=== PATIENT | male | born 1960 | race Caucasian/White ===

== ENCOUNTER 2019-01-16 03:59 | Emergency (ER) | payer MEDICAID ==
[~2019-01-16] VITALS: Ht 172.7 cm; Wt 68.2 kg
[~2019-01-16 03:59] MED LIST: GABA-338 PO; OMEP40CA13 PO; VENL37.586 PO
[2019-01-16] MEDS ORDERED: ondansetron/PF 4mg/2ml inj IV ONE (04:45)
[2019-01-16] MEDS ORDERED: morphine 4 MG/ML inj SYRINge IV ONE (04:45)
[2019-01-16] MEDS ORDERED: pantoprazole 40 MG vial IV ONE (04:45)
[2019-01-16] MEDS ORDERED: normal saline 1000ML IV soln IVB ONE (04:45)
[2019-01-16 05:05] LABS: BASOPHILS # (AUTO) 0.1 X10'3 (0-0.2); BASOPHILS % (AUTO) 0.6 % (0-1); EOSINOPHILS # (AUTO) 0.2 X10'3 (0-0.9); EOSINOPHILS % (AUTO) 1.7 % (0-6); HEMATOCRIT 43.2 % (42.0-52.0); HEMOGLOBIN 14.5 g/dl (14.0-17.9); LYMPHOCYTES # (AUTO) 1.8 X10'3 (1.1-4.8); LYMPHOCYTES % (AUTO) 18.3 % (21-51); MEAN CORPUSCULAR HEMOGLOBIN 32.2 PG (27.0-31.0); MEAN CORPUSCULAR HGB CONC 33.5 g/dL (33.0-36.5); MEAN CORPUSCULAR VOLUME 96.1 FL (78-98); MEAN PLATELET VOLUME 8.9 FL (7.4-10.4); MONOCYTES # (AUTO) 0.5 X10'3 (0-0.9); MONOCYTES % (AUTO) 4.6 % (2-12); NEUTROPHILS # (AUTO) 7.3 X10'3 (1.8-7.7); NEUTROPHILS % (AUTO) 74.8 % (42-75); PLATELET COUNT 243 X10'3 (140-440); WHITE BLOOD COUNT 9.7 X10'3 (4.5-11.0)
[2019-01-16 05:13] LABS: ALANINE AMINOTRANSFERASE 25 U/L (12-78); ALBUMIN 3.2 G/DL (3.4-5.0); ALKALINE PHOSPHATASE 78 IU/L (46-116); ANION GAP 8 (8-16); ASPARTATE AMINO TRANSFERASE 15 U/L (10-37); BILIRUBIN,TOTAL 0.3 MG/DL (0.1-1.0); BLOOD UREA NITROGEN 12 MG/DL (7-18); BUN/CREATININE RATIO 12.1 (5.4-32.0); CALCIUM 8.6 MG/DL (8.5-10.1); CHLORIDE 106 MMOL/L (99-107); CREATININE 0.99 MG/DL (0.60-1.10); GLUCOSE 153 MG/DL (70-104); LIPASE 87 U/L (73-393); POTASSIUM 3.4 MMOL/L (3.5-5.1); SODIUM 142 MMOL/L (135-145); TOTAL CARBON DIOXIDE 27.8 MMOL/L (24-32); TOTAL PROTEIN 6.4 G/DL (6.4-8.2); eGFR 77 ML/MIN
[2019-01-16] MEDS ORDERED: ONDA8TAB13 PO (05:36)
[2019-01-16] MEDS ORDERED: LIDOcaine Viscous 15ml cup PO ONE (05:55)
[2019-01-16] MEDS ORDERED: mag hydrox/Alum hydrox/simeth 30ml oral suspension PO ONE (05:55)
[2019-01-16 06:23] VITALS: BP 154/81
== END 2019-01-16 06:57 | disposition home or self-care (01) ==
LOC: ER 03:59
DX: S29.012A Strain of muscle and tendon of back wall of thorax, initial encounter (principal); G89.29 Other chronic pain; R10.13 Epigastric pain; R11.10 Vomiting, unspecified; J44.9 Chronic obstructive pulmonary disease, unspecified; K21.9 Gastro-esophageal reflux disease without esophagitis; F17.200 Nicotine dependence, unspecified, uncomplicated; F12.90 Cannabis use, unspecified, uncomplicated; Z88.0 Allergy status to penicillin; Z88.5 Allergy status to narcotic agent; Z88.8 Allergy status to other drugs, medicaments and biological substances; Z79.899 Other long term (current) drug therapy; X50.0XXA Overexertion from strenuous movement or load, initial encounter; Y93.89 Activity, other specified; Y92.89 Other specified places as the place of occurrence of the external cause; Y99.8 Other external cause status
CPT/HCPCS: 36415; 80053; 83690; 85025; 93005; 96361; 96374; 96375; 99284; C9113; J2270; J2405; J7030

== ENCOUNTER 2019-01-29 18:48 | Inpatient (IN) | payer MEDICAID ==
[~2019-01-29] VITALS: Ht 172.7 cm; Wt 63.0 kg
[~2019-01-29 18:48] MED LIST changes: +ONDA8TAB13 PO
[2019-01-29 19:37] LABS: BASOPHILS # (AUTO) 0.1 X10'3 (0-0.2); BASOPHILS % (AUTO) 0.9 % (0-1); EOSINOPHILS # (AUTO) 0.4 X10'3 (0-0.9); EOSINOPHILS % (AUTO) 2.9 % (0-6); HEMATOCRIT 46.5 % (42.0-52.0); HEMOGLOBIN 15.7 g/dl (14.0-17.9); LYMPHOCYTES # (AUTO) 2.6 X10'3 (1.1-4.8); LYMPHOCYTES % (AUTO) 19.4 % (21-51); MEAN CORPUSCULAR HGB CONC 33.7 g/dL (33.0-36.5); MEAN CORPUSCULAR VOLUME 94.9 FL (78-98); MEAN PLATELET VOLUME 7.9 FL (7.4-10.4); MONOCYTES # (AUTO) 0.7 X10'3 (0-0.9); MONOCYTES % (AUTO) 5.6 % (2-12); NEUTROPHILS # (AUTO) 9.4 X10'3 (1.8-7.7); NEUTROPHILS % (AUTO) 71.2 % (42-75); PLATELET COUNT 262 X10'3 (140-440); RED CELL DISTRIBUTION WIDTH 14.3 % (11.5-14.5); WHITE BLOOD COUNT 13.2 X10'3 (4.5-11.0)
[2019-01-29 19:55] LABS: ALANINE AMINOTRANSFERASE 28 U/L (12-78); ALBUMIN 3.7 G/DL (3.4-5.0); ALBUMIN/GLOBULIN RATIO 1.1 (1.1-1.5); ALKALINE PHOSPHATASE 88 IU/L (46-116); ANION GAP 11 (8-16); ASPARTATE AMINO TRANSFERASE 20 U/L (10-37); BILIRUBIN,TOTAL 0.4 MG/DL (0.1-1.0); BLOOD UREA NITROGEN 12 MG/DL (7-18); BUN/CREATININE RATIO 11.3 (5.4-32.0); CALCIUM 9.1 MG/DL (8.5-10.1); CHLORIDE 105 MMOL/L (99-107); CREATININE 1.06 MG/DL (0.60-1.10); GLUCOSE 117 MG/DL (70-104); SODIUM 143 MMOL/L (135-145); TOTAL CARBON DIOXIDE 26.9 MMOL/L (24-32); TOTAL PROTEIN 7.2 G/DL (6.4-8.2); eGFR 71 ML/MIN
[2019-01-29 19:57] LABS: PARTIAL THROMBOPLASTIN TIME 28 SECONDS (22-32)
[2019-01-29] MEDS ORDERED: normal saline 1000ML IV soln IVB ONE ×2 (20:35→22:05)
[2019-01-29] MEDS ORDERED: ondansetron/PF 4mg/2ml inj IV ONE (20:35)
[2019-01-29 20:42] LABS: LIPASE 159 U/L (73-393)
--- NOTE | 2019-01-29 21:00 | NUR ---
[facility] PT'S SON
[2019-01-29] MEDS: morphine 4 MG/ML inj SYRINge IV PRN ×2 (21:03→22:35)
--- NOTE | 2019-01-29 21:08 | NUR ---
PT STATES PAIN IS MOSTLY "JUST MY LOWER BACK." PT NOW SLEEPING COMFORTABLY.
[2019-01-29] MEDS ORDERED: metroNIDAZOLE-Flagyl 500mg/NS 100 ML IV STA (22:04)
--- NOTE | 2019-01-29 22:12 | NUR ---
PT DAUGHTER TANIA OTT CONTACT NUMBER: [phone]
[2019-01-29] MEDS ORDERED: SUMA50TA PO (22:33)
[2019-01-29] MEDS ORDERED: morphine 4 MG/ML inj SYRINge IV ONE (23:05)
[2019-01-29] MEDS ORDERED: ondansetron/PF 4mg/2ml inj IV PRN (23:10)
[2019-01-29] MEDS: normal saline 1000ml 1,000 ML IV SCH (23:15)
[2019-01-29] MEDS: ciprofloxacin lact 400MG/200ML 200 ML IV SCH (23:32)
[2019-01-30] VITALS (17 sets, daily range): BP systolic 127–186; BP diastolic 74–104
[2019-01-30] MEDS: metroNIDAZOLE-Flagyl 500mg/NS 100 ML IV SCH ×4 (00:41→23:58)
[2019-01-30] MEDS ORDERED: amLODIPine 5mg tablet PO ONE (05:10)
--- NOTE | 2019-01-30 05:20 | NUR ---
dr. nassar notified of pt's bp 180 and heart rhythm 2nd degree type 2. received order of norvasc 5mg once.
[2019-01-30] MEDS: morphine 2 MG/ML inj. syringe IV PRN ×3 (05:34→21:23)
[2019-01-30 06:01] LABS: BASOPHILS # (AUTO) 0.1 X10'3 (0-0.2); BASOPHILS % (AUTO) 0.6 % (0-1); EOSINOPHILS % (AUTO) 0.1 % (0-6); HEMATOCRIT 45.5 % (42.0-52.0); HEMOGLOBIN 15.3 g/dl (14.0-17.9); LYMPHOCYTES # (AUTO) 1.6 X10'3 (1.1-4.8); LYMPHOCYTES % (AUTO) 12.5 % (21-51); MEAN CORPUSCULAR HGB CONC 33.7 g/dL (33.0-36.5); MEAN CORPUSCULAR VOLUME 94.9 FL (78-98); MEAN PLATELET VOLUME 8.1 FL (7.4-10.4); MONOCYTES # (AUTO) 0.9 X10'3 (0-0.9); MONOCYTES % (AUTO) 7.2 % (2-12); NEUTROPHILS # (AUTO) 10.5 X10'3 (1.8-7.7); NEUTROPHILS % (AUTO) 79.6 % (42-75); PLATELET COUNT 255 X10'3 (140-440); RED BLOOD COUNT 4.79 X10'6 (4.70-6.10); RED CELL DISTRIBUTION WIDTH 14.5 % (11.5-14.5); WHITE BLOOD COUNT 13.1 X10'3 (4.5-11.0)
--- NOTE | 2019-01-30 06:20 | NUR ---
Patient in room ORTHO 4021. I have received report from Paty and had the opportunity to ask questions and assume patient care.
--- NOTE | 2019-01-30 06:33 | NUR ---
Problems reprioritized. Patient report given, questions answered & plan of care reviewed with KRISTIE SHETTY.
[2019-01-30 07:08] LABS: ALANINE AMINOTRANSFERASE 57 U/L (12-78); ALBUMIN 3.3 G/DL (3.4-5.0); ANION GAP 11 (8-16); ASPARTATE AMINO TRANSFERASE 39 U/L (10-37); BILIRUBIN,TOTAL 0.4 MG/DL (0.1-1.0); BLOOD UREA NITROGEN 7 MG/DL (7-18); BUN/CREATININE RATIO 7.7 (5.4-32.0); CALCIUM 7.7 MG/DL (8.5-10.1); CHLORIDE 105 MMOL/L (99-107); CREATININE 0.91 MG/DL (0.60-1.10); GLUCOSE 121 MG/DL (70-104); POTASSIUM 3.7 MMOL/L (3.5-5.1); SODIUM 143 MMOL/L (135-145); TOTAL PROTEIN 6.7 G/DL (6.4-8.2); eGFR 85 ML/MIN
--- NOTE | 2019-01-30 07:10 | NUR ---
Problems reprioritized. Patient report given, questions answered & plan of care reviewed with Gardenia on surgical.
--- NOTE | 2019-01-30 07:22 | NUR ---
Pt was wheeled down to surgical.
[2019-01-30] MEDS: pantoprazole 40mg Tablet.DR PO SCH (07:30)
[2019-01-30 07:32] LABS: ALKALINE PHOSPHATASE 89 IU/L (46-116)
[2019-01-30] MEDS: ciprofloxacin lact 400MG/200ML 200 ML IV SCH ×2 (07:49→21:05)
[2019-01-30] MEDS: lactobacillus rhamnosus 10,000 MMU CELLS/CAPSULE PO SCH ×2 (07:56→20:00)
[2019-01-30] MEDS ORDERED: gabapentin 300mg capsule PO SCH (08:00)
[2019-01-30] MEDS ORDERED: ciprofloxacin lact 400MG/200ML 200 ML IV SCH (08:00)
[2019-01-30] MEDS ORDERED: DULO30CA52 PO (08:37)
[2019-01-30] MEDS ORDERED: ALBU2.5V12 NEB (08:37)
[2019-01-30] MEDS ORDERED: PANT-47 PO (08:37)
[2019-01-30] MEDS ORDERED: METO-384 PO (08:37)
[2019-01-30] MEDS ORDERED: TIOT4MIS5 IH (08:37)
[2019-01-30] MEDS: normal saline 1000ml 1,000 ML IV SCH ×3 (09:13→20:56)
[2019-01-30] MEDS ORDERED: pneumococcal 23-VAL P-sac vacc 25 mcg/0.5ml vial IMVAC ONE (10:00)
[2019-01-30] MEDS ORDERED: magnesium 4gm in 100ml NS 100 ML IV PRN (10:10)
[2019-01-30] MEDS ORDERED: potassium CL 10mEq/100ml bag 100 ML IV PRN (10:10)
[2019-01-30] MEDS ORDERED: potassium Cl 20 mEq SR tablet PO PRN ×2 (10:10)
[2019-01-30] MEDS ORDERED: magnesium Cl slow-release 64mg tablet PO PRN (10:10)
[2019-01-30] MEDS ORDERED: albuterol 2.5 MG/3 ML nebule NEB PRN (10:15)
[2019-01-30] MEDS ORDERED: ipratropium 0.5 MG/2.5ML nebule IH PRN (10:20)
[2019-01-30] MEDS: gabapentin 300mg capsule PO SCH ×2 (12:54→21:03)
[2019-01-30] MEDS ORDERED: BUPIVAcaine/PF 2.5mg/ml (0.25%) 10ml vial ONE (13:13)
--- NOTE | 2019-01-30 15:18 | NUR ---
Report called to KRISTIE Burgos in recovery. Patient yellow ring removed and placed in belongings bag. 1600 flagyl in chart to be sent to OR with patient.
[2019-01-30] MEDS ORDERED: sevoflurane 250ml liquid IH ONE (15:46)
[2019-01-30] MEDS ORDERED: fentaNYL/PF 50MCG/1 ML 2ML syringe ONE ×2 (15:50→15:51)
[2019-01-30] MEDS ORDERED: midazolam 2 mg/2 ml injection ONE (15:51)
[2019-01-30] MEDS ORDERED: ceFOXitin 2 GM ADDVANTGE BAG 50 ML IV ONE (15:52)
[2019-01-30] MEDS ORDERED: propofol inj 20 ML IV ONE (15:53)
[2019-01-30] MEDS ORDERED: rocuronium 10mg/ml inj IV ONE (15:54)
[2019-01-30] MEDS ORDERED: ringers solution, lacted 1,000 ML IV SCH (16:17)
[2019-01-30] MEDS ORDERED: morphine 4 MG/ML inj SYRINge IV PRN ×2 (16:20)
[2019-01-30] MEDS ORDERED: ondansetron/PF 4mg/2ml inj IV PRN (16:20)
[2019-01-30] MEDS ORDERED: meperidine/PF 25mg/ml syringe IV PRN ×3 (16:20)
[2019-01-30] MEDS ORDERED: proCHLORperazine 10 MG/2 ml inj IV PRN (16:20)
[2019-01-30] MEDS ORDERED: neostigmine methylsulfate 1 MG/ML 10ml vial ONE (16:31)
[2019-01-30] MEDS ORDERED: glycopyrrolate 0.2mg/ml inj ONE (16:31)
--- NOTE | 2019-01-30 17:15 | NUR ---
Received from OR via [facility], accompanied by Anesthesiologist DANIELLE and report given by Anesthesiolgist. PT DROWSY, OXYGENATING WELL ON 10 LPM O2 VIA MASK, NO RESP DISTRESS NOTED. PT DENIES NAUSEA OR PAIN AT THIS TIME. 4 ABD LAP SITES COVERED WITH BANDAIDS, CDI. POST OP ACCUCHECK 121. VSS.
--- NOTE | 2019-01-30 17:55 | NUR ---
Report called to receiving nurse. Transferred via BED Belongings IN PT ROOM. NO PAIN, TOLERATING PO FLUIDS WELL. VSS. TRANSFERRED TO 3 SURG IN STABLE CONDITION Special Issues communicated to receiving nurse.
--- NOTE | 2019-01-30 18:00 | NUR ---
Received report from geophysical data technician. Patient arrived to floor. VSS. post op vital signs started.
--- NOTE | 2019-01-30 18:22 | NUR ---
Problems reprioritized. Patient report given, questions answered & plan of care reviewed with KRISTIE Montilla.
--- NOTE | 2019-01-30 18:30 | NUR ---
Patient in room [facility] 347. I have received report from Carla FLOWERS and had the opportunity to ask questions and assume patient care.
[2019-01-30] MEDS: heparin, porcine 5000 units/ml vial SQ SCH (21:15)
[2019-01-31] VITALS: BP 139/89
--- NOTE | 2019-01-31 03:56 | NUR ---
Ambulatory Addendum: 01/31/19 at 0400 by Eladia Gutierrez RN Amended: Links added.
[2019-01-31 04:00] VITALS: BP 154/90
[2019-01-31 05:20] LABS: BASOPHILS % (AUTO) 0.3 % (0-1); EOSINOPHILS # (AUTO) 0.1 X10'3 (0-0.9); EOSINOPHILS % (AUTO) 0.5 % (0-6); HEMOGLOBIN 15.1 g/dl (14.0-17.9); LYMPHOCYTES # (AUTO) 2.2 X10'3 (1.1-4.8); LYMPHOCYTES % (AUTO) 23.3 % (21-51); MEAN CORPUSCULAR HEMOGLOBIN 32.4 PG (27.0-31.0); MEAN CORPUSCULAR HGB CONC 33.5 g/dL (33.0-36.5); MEAN CORPUSCULAR VOLUME 96.7 FL (78-98); MEAN PLATELET VOLUME 8.6 FL (7.4-10.4); MONOCYTES # (AUTO) 0.8 X10'3 (0-0.9); MONOCYTES % (AUTO) 7.9 % (2-12); NEUTROPHILS # (AUTO) 6.4 X10'3 (1.8-7.7); PLATELET COUNT 195 X10'3 (140-440); RED BLOOD COUNT 4.65 X10'6 (4.70-6.10); RED CELL DISTRIBUTION WIDTH 14.2 % (11.5-14.5); WHITE BLOOD COUNT 9.5 X10'3 (4.5-11.0)
[2019-01-31 05:32] LABS: ALANINE AMINOTRANSFERASE 66 U/L (12-78); ALBUMIN/GLOBULIN RATIO 0.9 (1.1-1.5); ALKALINE PHOSPHATASE 80 IU/L (46-116); ANION GAP 7 (8-16); ASPARTATE AMINO TRANSFERASE 50 U/L (10-37); BILIRUBIN,TOTAL 0.8 MG/DL (0.1-1.0); BLOOD UREA NITROGEN 7 MG/DL (7-18); BUN/CREATININE RATIO 7.5 (5.4-32.0); CALCIUM 8.7 MG/DL (8.5-10.1); CHLORIDE 106 MMOL/L (99-107); CREATININE 0.93 MG/DL (0.60-1.10); GLUCOSE 98 MG/DL (70-104); MAGNESIUM 1.8 MG/DL (1.5-2.4); PHOSPHORUS 2.4 MG/DL (2.3-4.5); POTASSIUM 3.4 MMOL/L (3.5-5.1); SODIUM 142 MMOL/L (135-145); TOTAL CARBON DIOXIDE 28.7 MMOL/L (24-32); TOTAL PROTEIN 6.2 G/DL (6.4-8.2); eGFR 83 ML/MIN
--- NOTE | 2019-01-31 06:20 | NUR ---
Problems reprioritized. Patient report given, questions answered & plan of care reviewed with Carla FLOWERS.
[2019-01-31 07:00] VITALS: BP 169/98
[2019-01-31] MEDS: pantoprazole 40mg Tablet.DR PO SCH (07:30)
[2019-01-31] MEDS ORDERED: pantoprazole 40mg Tablet.DR PO SCH (08:00)
[2019-01-31] MEDS ORDERED: duloxetine 30mg CAPSULE.DR PO SCH (08:00)
[2019-01-31] MEDS: heparin, porcine 5000 units/ml vial SQ SCH (08:00)
[2019-01-31] MEDS ORDERED: metoprolol succinate 25mg (24-HOUR) SR. Tablet PO SCH (08:00)
[2019-01-31 08:30] VITALS: BP 133/86
[2019-01-31] MEDS: morphine 2 MG/ML inj. syringe IV PRN (08:44)
[2019-01-31] MEDS: metroNIDAZOLE-Flagyl 500mg/NS 100 ML IV SCH ×2 (08:46→15:13)
[2019-01-31] MEDS: lactobacillus rhamnosus 10,000 MMU CELLS/CAPSULE PO SCH (08:58)
[2019-01-31] MEDS: gabapentin 300mg capsule PO SCH ×2 (08:59→13:46)
--- NOTE | 2019-01-31 09:45 | NUR ---
Around 0830 patient complained of stabbing sharp chest pain rated 8/10 on pain scale and radiating down the left arm. electric switch repairer called rapid response. Vital signs stable BP 133/86, HR 90, O2 98% RA. EKG obtained, ICU electric switch repairer compared wit previous EKG and noted no differences. signed EKG. Dr nguyen called new orders received. 0945 Patient now up ambulating hallways, no chest pain noted.
[2019-01-31 11:00] VITALS: BP 150/75
[2019-01-31] MEDS: ciprofloxacin lact 400MG/200ML 200 ML IV SCH (11:17)
[2019-01-31] MEDS: normal saline 1000ml 1,000 ML IV SCH (11:21)
[2019-01-31] MEDS ORDERED: LEVO500T89 PO (17:14)
[2019-01-31] MEDS ORDERED: LACT1CAP26 PO (17:14)
[2019-01-31] MEDS ORDERED: METR-159 PO (17:14)
--- NOTE | 2019-01-31 17:56 | NUR ---
Stable and appropriate for discharge with son. Patient discharge instructions given and reviewed with patient, all questions answered. IV removed. New prescriptions called into [facility] on [address]. All belongings taken from room.
[2019-02-01] MEDS ORDERED: metroNIDAZOLE 500mg tablet PO SCH
== END 2019-01-31 18:11 | disposition home or self-care (01) | DRG 263 ==
LOC: ER 18:48 → ORTHO 4S 01-30 00:04 → SUR 3N 01-30 07:30
PROVIDERS: ADMIT Internal Medicine; ATTEND Family Medicine
PROC: 3E0234Z Introduction of Serum, Toxoid and Vaccine into Muscle, Percutaneous Approach (ICD-10-PCS; 2019-01-30)
PROC: 0FT44ZZ Resection of Gallbladder, Percutaneous Endoscopic Approach (ICD-10-PCS; principal; 2019-01-30 15:46)
DX: K80.66 Calculus of gallbladder and bile duct with acute and chronic cholecystitis without obstruction (principal); G62.9 Polyneuropathy, unspecified; F17.200 Nicotine dependence, unspecified, uncomplicated; I10 Essential (primary) hypertension; K90.0 Celiac disease; J44.9 Chronic obstructive pulmonary disease, unspecified; K21.9 Gastro-esophageal reflux disease without esophagitis; F12.90 Cannabis use, unspecified, uncomplicated; G89.29 Other chronic pain; M54.9 Dorsalgia, unspecified; Z23 Encounter for immunization; Z88.5 Allergy status to narcotic agent; Z88.0 Allergy status to penicillin; Z71.6 Tobacco abuse counseling
CPT/HCPCS: 36415; 70551; 71045; 74176; 80053; 82948; 83690; 83735; 84100; 84484; 85025; 85610; 85730; 87081; 90732; 93005; 94760; 96365; 96375; 99285; A4215; A4618; A7000; G0378; J0694; J0744; J1644; J2175; J2250; J2270; J2405; J2704; J2710; J3010; J3490; J7030; J7120